=== PATIENT | female | born 1980 | race Caucasian/White ===

== ENCOUNTER 2017-07-25 08:04 | Emergency (ER) | payer MEDICAID ==
[2017-07-25] MEDS: IBUPROFEN 600 MG TAB PO (08:31)
[2017-07-25 09:33] LABS: TROPONIN-I < 0.012 ng/ml (0.00-0.12)
== END 2017-07-25 09:52 | disposition home or self-care (01) ==
LOC: FTE 08:04
DX: R07.89 Other chest pain (principal)
CPT/HCPCS: 36415; 71045; 84484; 93005; 99285-25